=== PATIENT | female | born 1995 | race African-American/Black ===

== ENCOUNTER 2017-11-03 12:38 | Emergency (ER) | payer MEDICAID ==
[~2017-11-03] VITALS: Ht 165.1 cm; Wt 101.0 kg
[~2017-11-03 12:38] MED LIST: FERR325T18 PO; IBUP-1222 PO; LABE200T3 PO; LISI5TAB7 PO; OXYC-302 PO; PREN1TAB56 PO
[2017-11-03 12:50] VITALS: BP 118/70
[2017-11-03] MEDS ORDERED: LIDOCAINE 1%, 20ML ONE (14:43)
== END 2017-11-03 15:27 | disposition home or self-care (01) ==
LOC: ED 15:20
DX: L02.811 Cutaneous abscess of head [any part, except face] (principal)
CPT/HCPCS: 10060; 99283

== ENCOUNTER 2018-07-25 19:10 | Emergency (ER) | payer OTHER ==
[~2018-07-25] VITALS: Ht 165.1 cm; Wt 92.9 kg
[~2018-07-25 19:10] MED LIST changes: -LABE200T3 PO; +LABE200T6 PO
[2018-07-25 19:14] VITALS: BP 170/107
== END 2018-07-25 20:26 | disposition home or self-care (01) ==
LOC: ED 20:15
DX: L73.8 Other specified follicular disorders (principal); I10 Essential (primary) hypertension; F17.200 Nicotine dependence, unspecified, uncomplicated
CPT/HCPCS: 99283

== ENCOUNTER 2018-12-12 17:40 | Emergency (ER) | payer OTHER ==
[~2018-12-12] VITALS: Ht 165.1 cm; Wt 90.9 kg
--- NOTE | 2018-12-12 18:26 | NUR ---
pt presents to ED with c/o bilateral flank pain and cough, onset this am. pt a&o, resps even and unlabored. pt instructed to provide clean catch ua, amb to bathroom with steady gait.
[2018-12-12 18:44] LABS: MICROSCOPIC AUTO
[2018-12-12 18:48] VITALS: BP 134/92
[2018-12-12 18:55] LABS: CULTURE INDICATED? NO
--- NOTE | 2018-12-12 19:27 | NUR ---
pt resting on gurney, resps even and unlabored. no complaint at this time. pt given results and POC by RAE Dominguez.
--- NOTE | 2018-12-12 19:37 | NUR ---
REPORT GIVEN TO WINSTON MADRIGAL.
--- NOTE | 2018-12-12 20:01 | NUR ---
Patient/Caregiver given discharge instructions and they have confirmed that they understand the instructions. Patient ambulatory with steady gait.
== END 2018-12-12 20:03 | disposition home or self-care (01) ==
LOC: ED 19:57
DX: J00 Acute nasopharyngitis [common cold] (principal); R10.9 Unspecified abdominal pain; I10 Essential (primary) hypertension
CPT/HCPCS: 81001; 99283

== ENCOUNTER 2019-03-21 17:53 | Emergency (ER) | payer OTHER ==
[~2019-03-21] VITALS: Ht 165.1 cm; Wt 90.5 kg
--- NOTE | 2019-03-21 19:21 | NUR ---
called in the lobby, no answer.
[2019-03-21] MEDS ORDERED: ETON68IM3 IMPLANT (19:42)
--- NOTE | 2019-03-21 19:45 | NUR ---
PT TO ED FOR ABNORMALLY HEAVY MENSTRUAL BLEEDING AND CRAMPS WITH LARGE BLOOD CLOTS. PT STATES HAS BEEN ON PERIOD SINCE 03/01/2019. CURRENTLY USING NEXPLANON CONTROL. PT CONNECTED TO MONITORS. VSS. EDPA TO BS FOR ASSESSMENT. AWAITING FURTHER ORDERS.
[2019-03-21 20:23] LABS: BASOPHILS # (AUTO) 0.04 x10^3/uL (0-0.1); BASOPHILS % (AUTO) 1 % (0-1); EOSINOPHILS # (AUTO) 0.06 x10^3/uL (0-0.4); EOSINOPHILS % (AUTO) 1 % (1-7); LYMPHOCYTES # (AUTO) 2.75 x10^3/uL (1-3.4); LYMPHOCYTES % (AUTO) 40 % (22-44); MD NO; MEAN CORPUSCULAR HEMOGLOBIN 28.3 pg (27.0-34.8); MEAN CORPUSCULAR HGB CONC 32.5 g/dL (32.4-35.8); MEAN PLATELET VOLUME 8.6 fL (7.4-10.4); MONOCYTES # (AUTO) 0.43 x10^3/uL (0.2-0.8); MONOCYTES % (AUTO) 6 % (2-9); NEUTROPHILS % (AUTO) 52 % (42-75); PLATELET COUNT 222 x10^3/uL (130-400); RED BLOOD COUNT 4.41 x10^6/uL (3.82-5.3); RED CELL DISTRIBUTION WIDTH 15.1 % (9.6-15.2)
[2019-03-21 20:34] LABS: ALBUMIN 3.5 g/dL (3.4-5.0); ANION GAP 5 mmol/L (5-15); CALCIUM 8.7 mg/dL (8.5-10.1); CHLORIDE 111 mmol/L (98-107); CREATININE 0.75 mg/dL (0.55-1.02)
[2019-03-21 20:40] LABS: MICROSCOPIC AUTO
[2019-03-21 20:45] LABS: CULTURE INDICATED? YES
--- NOTE | 2019-03-21 21:26 | NUR ---
EDPA TO BS FOR PELVIC.
--- NOTE | 2019-03-21 22:00 | NUR ---
received report from PAMELA Felipe.
[2019-03-21 23:03] LABS: CLUE CELLS NONE SEEN (NONE SEEN)
[2019-03-21 23:04] LABS: WET PREP WBCS FEW (FEW)
--- NOTE | 2019-03-21 23:19 | NUR ---
re-evaluation done. patient discharged with prescriptions and instruction. verbalized understanding.
[2019-03-21 23:20] VITALS: BP 156/92
== END 2019-03-21 23:22 | disposition home or self-care (01) ==
LOC: ED 22:13
DX: N83.292 Other ovarian cyst, left side (principal); N93.8 Other specified abnormal uterine and vaginal bleeding; I10 Essential (primary) hypertension
CPT/HCPCS: 36415; 76830; 80048; 81001; 82040; 84703; 85025; 87086; 87210; 87491; 87591; 87808; 99284

== ENCOUNTER 2019-12-21 08:01 | Emergency (ER) | payer MEDICAID, OTHER ==
[~2019-12-21] VITALS: Ht 165.1 cm; Wt 91.0 kg
[~2019-12-21 08:01] MED LIST changes: +ETON68IM3 IMPLANT
--- NOTE | 2019-12-21 08:48 | NUR ---
BRAND SPECIALIST: TO ROOM FROM LOBBY
--- NOTE | 2019-12-21 09:06 | NUR ---
Pt ambulated to room, changed into gown, resting on gurney, pt teary eyed due to reported pain, waiting for doctor consults, pt consoled verbally, NAD, denies additional needs at this time.
[2019-12-21] MEDS ORDERED: LIDOCAINE-MPF 2% ,5ML ONE (09:14)
[2019-12-21 13:32] VITALS: BP 179/120
== END 2019-12-21 10:11 ==
LOC: ED 09:50
DX: K08.89 Other specified disorders of teeth and supporting structures (principal); I10 Essential (primary) hypertension; Z72.9 Problem related to lifestyle, unspecified
CPT/HCPCS: 99283

== ENCOUNTER 2020-01-01 10:06 | Emergency (ER) | payer OTHER ==
[~2020-01-01] VITALS: Ht 165.1 cm; Wt 93.8 kg
[2020-01-01 10:13] VITALS: BP 160/96
--- NOTE | 2020-01-01 10:27 | NUR ---
FIRST CONTACT WITH PT. PT C/O ACHE SITE OF MOLAR REMOVAL, WISDOM TOOTH EXTRACTION 2 WEEKS AGO. PT'S AOX4. RESPS EVEN AND UNLABORED. PA AT BEDSIDE TO EVALUATE AT THIS TIME.
[2020-01-01] MEDS ORDERED: KETOROLAC 30 MG/1 ML IM ONE (10:30)
[2020-01-01] MEDS ORDERED: KETOROLAC 30 MG/1 ML ONE (10:32)
--- NOTE | 2020-01-01 10:35 | NUR ---
PT MEDICATED PER EMAR. PT TOLERATED WELL.
== END 2020-01-01 10:46 | disposition home or self-care (01) ==
LOC: ED 10:40
DX: K08.89 Other specified disorders of teeth and supporting structures (principal)
CPT/HCPCS: 96372; 99283; J1885